=== PATIENT | female | born 1960 | race Native Hawaiian/Other Pacific Islander ===

== ENCOUNTER 2018-06-13 07:01 | Outpatient (CLI) | payer BC | END 2018-06-13 07:09 | disposition short-term general hospital (02) | LOC: AMB 07:01 | DX: R42 Dizziness and giddiness (principal); R11.0 Nausea | CPT/HCPCS: A0425; A0427 ==

== ENCOUNTER 2018-06-13 07:09 | Emergency (ER) | payer BC ==
[~2018-06-13] VITALS: Ht 157.5 cm; Wt 758.9 kg
[2018-06-13 07:36] LABS: PLATELET COUNT 329 K/uL (152-353)
[2018-06-13 09:15] VITALS: BP 170/84; TEMP 98
== END 2018-06-13 09:15 | disposition home or self-care (01) ==
LOC: ED 07:09
DX: R42 Dizziness and giddiness (principal); R11.2 Nausea with vomiting, unspecified
CPT/HCPCS: 80053; 81000; 85027; 99283